=== PATIENT | male | born 1955 | race Caucasian/White ===

== ENCOUNTER 2017-11-26 00:26 | Emergency (ER) | payer MEDICAID ==
[~2017-11-26] VITALS: Ht 185.4 cm; Wt 85.6 kg
[2017-11-26 00:42] VITALS: BP 134/80
[2017-11-26] MEDS ORDERED: TETanus/Pertussis (Acell)/Diphther VAC/PF (Tdap-Adult) 0.5ml syringe IMVAC ONE (01:35)
[2017-11-26] MEDS ORDERED: famotidine 20mg tablet PO ONE (01:35)
[2017-11-26] MEDS ORDERED: methylPREDNISolone sod succ 125mg/2ml vial IV ONE (01:35)
[2017-11-26] MEDS ORDERED: METH4TAB81 PO (01:36)
[2017-11-26] MEDS ORDERED: FAMO-128 PO (01:36)
[2017-11-26] MEDS ORDERED: DIPH-423 PO (01:36)
[2017-11-26] MEDS ORDERED: EPIN0.3P8 IM (01:43)
== END 2017-11-26 02:02 | disposition home or self-care (01) ==
LOC: ER 00:27
DX: T63.441A Toxic effect of venom of bees, accidental (unintentional), initial encounter (principal); Z91.030 Bee allergy status; Z79.899 Other long term (current) drug therapy; Z98.890 Other specified postprocedural states; Y92.89 Other specified places as the place of occurrence of the external cause
CPT/HCPCS: 90471; 90715; 96374; 99284; J2930

== ENCOUNTER 2019-12-16 07:01 | Emergency (ER) | payer MEDICAID ==
[~2019-12-16] VITALS: Ht 185.4 cm; Wt 86.4 kg
[~2019-12-16 07:01] MED LIST: DIPH-423 PO; EPIN0.3P8 IM; FAMO-128 PO; METH4TAB81 PO
[2019-12-16 07:41] LABS: CLARITY,URINE CLEAR (Clear); COLOR,URINE YELLOW (Yellow); GLUCOSE, URINE NEGATIVE (Neg); KETONES,URINE NEGATIVE (Neg); LEUKOCYTE ESTERASE ,URINE NEGATIVE (Neg); NITRITES, URINE NEGATIVE (Neg); OCCULT BLOOD,URINE NEGATIVE (Neg); PH,URINE 5.5 (4.8-8.0); PROTEIN,URINE NEGATIVE (Neg); UA COLLECTION TYPE CLN CATCH MIDSTREAM
[2019-12-16 07:53] VITALS: BP 158/85
[2019-12-16] MEDS ORDERED: METH-360 PO (08:29)
[2019-12-16] MEDS ORDERED: ketorolac tromethamine 15mg/ml inj. IM ONE (08:30)
== END 2019-12-16 08:44 | disposition home or self-care (01) ==
LOC: ER 07:02
DX: S39.012A Strain of muscle, fascia and tendon of lower back, initial encounter (principal); R04.0 Epistaxis; E78.00 Pure hypercholesterolemia, unspecified; Z98.890 Other specified postprocedural states; Z91.030 Bee allergy status; Z79.899 Other long term (current) drug therapy; X58.XXXA Exposure to other specified factors, initial encounter; Y93.89 Activity, other specified; Y92.89 Other specified places as the place of occurrence of the external cause; Y99.8 Other external cause status
CPT/HCPCS: 81003; 96372; 99283; J1885

== ENCOUNTER 2020-09-09 13:36 | Emergency (ER) | payer MEDICAID ==
[~2020-09-09] VITALS: Ht 182.9 cm; Wt 84.1 kg
[~2020-09-09 13:36] MED LIST changes: +METH-360 PO
[2020-09-09 13:59] VITALS: BP 125/77
[2020-09-09] MEDS ORDERED: CEPH250T PO (14:12)
== END 2020-09-09 14:29 | disposition home or self-care (01) ==
LOC: ER 13:39
DX: L03.113 Cellulitis of right upper limb (principal); E78.00 Pure hypercholesterolemia, unspecified; Z98.890 Other specified postprocedural states; Z91.030 Bee allergy status; Z79.2 Long term (current) use of antibiotics; Z79.899 Other long term (current) drug therapy
CPT/HCPCS: 99283

== ENCOUNTER 2021-04-17 16:23 | Emergency (ER) | payer MEDICAID ==
[~2021-04-17] VITALS: Ht 185.4 cm; Wt 90.9 kg
[2021-04-17 16:35] VITALS: BP 151/88
== END 2021-04-17 18:01 | disposition home or self-care (01) ==
LOC: ER 16:24
DX: M66.0 Rupture of popliteal cyst (principal); E78.00 Pure hypercholesterolemia, unspecified; Z91.030 Bee allergy status; Z79.899 Other long term (current) drug therapy
CPT/HCPCS: 93971; 99284

== ENCOUNTER 2021-09-25 18:52 | Emergency (ER) | payer MEDICAID ==
[~2021-09-25] VITALS: Ht 185.4 cm; Wt 88.6 kg
[2021-09-25 19:35] VITALS: BP 141/90
[2021-09-25 20:06] LABS: CLARITY,URINE SLIGHTLY CLOUDY (Clear); COLOR,URINE YELLOW (Yellow); GLUCOSE, URINE NEGATIVE (Neg); KETONES,URINE TRACE mg/dl (Neg); LEUKOCYTE ESTERASE ,URINE TRACE (Neg); NITRITES, URINE NEGATIVE (Neg); OCCULT BLOOD,URINE TRACE-INTACT (Neg); PH,URINE 5.5 (4.8-8.0); PROTEIN,URINE NEGATIVE (Neg); UROBILINOGEN,URINE 0.2 E.U/dL (0.2-1.0)
[2021-09-25 20:19] LABS: UA COLLECTION TYPE CLN CATCH MIDSTREAM
[2021-09-25 20:21] LABS: WBC,URINE 30-50 /HPF (0-4)
[2021-09-25 20:22] LABS: BACTERIA,URINE FEW /HPF (Neg); MUCUS STRANDS FEW /LPF (Neg); RBC,URINE 0-2 /HPF (0-2); SQUAMOUS EPITHELIAL CELL,UR FEW /LPF (FEW); TRANSITIONAL EPI CELLS,URINE FEW /HPF
[2021-09-25 20:50] LABS: BASOPHILS # (AUTO) 0.1 X10'3 (0-0.2); BASOPHILS % (AUTO) 0.6 % (0-1); EOSINOPHILS # (AUTO) 0.3 X10'3 (0-0.9); EOSINOPHILS % (AUTO) 3.6 % (0-6); HEMOGLOBIN 15.2 g/dl (14.0-17.9); LYMPHOCYTES % (AUTO) 11.7 % (21-51); MEAN CORPUSCULAR HEMOGLOBIN 30.3 PG (27.0-31.0); MEAN CORPUSCULAR VOLUME 91.9 FL (78-98); MEAN PLATELET VOLUME 8.5 FL (7.4-10.4); MONOCYTES # (AUTO) 0.7 X10'3 (0-0.9); MONOCYTES % (AUTO) 8.2 % (2-12); NEUTROPHILS # (AUTO) 6.3 X10'3 (1.8-7.7); NEUTROPHILS % (AUTO) 75.9 % (42-75); PLATELET COUNT 238 X10'3 (140-440); RED BLOOD COUNT 5.01 X10'6 (4.70-6.10); RED CELL DISTRIBUTION WIDTH 13.5 % (11.5-14.5); WHITE BLOOD COUNT 8.3 X10'3 (4.5-11.0)
[2021-09-25 21:07] LABS: ALANINE AMINOTRANSFERASE 49 U/L (12-78); ALBUMIN 3.4 G/DL (3.4-5.0); ALBUMIN/GLOBULIN RATIO 0.9 (1.1-1.5); ALKALINE PHOSPHATASE 61 IU/L (46-116); ANION GAP 8 (8-16); ASPARTATE AMINO TRANSFERASE 36 U/L (10-37); BILIRUBIN,TOTAL 0.4 MG/DL (0.1-1.0); BLOOD UREA NITROGEN 19 MG/DL (7-18); BUN/CREATININE RATIO 19.8 (5.4-32.0); CHLORIDE 105 MMOL/L (99-107); CREATININE 0.96 MG/DL (0.60-1.10); GLUCOSE 112 MG/DL (70-104); LIPASE 78 U/L (73-393); POTASSIUM 3.9 MMOL/L (3.5-5.1); SODIUM 139 MMOL/L (135-145); TOTAL CARBON DIOXIDE 26.1 MMOL/L (24-32); TOTAL PROTEIN 7.1 G/DL (6.4-8.2); eGFR 79 ML/MIN
[2021-09-25 21:16] LABS: CALCIUM 8.5 MG/DL (8.5-10.1)
== END 2021-09-26 00:51 | disposition left against medical advice (07) ==
LOC: ER 18:53
DX: R10.9 Unspecified abdominal pain (principal); Z53.21 Procedure and treatment not carried out due to patient leaving prior to being seen by health care provider
CPT/HCPCS: 36415; 80053; 81001; 83690; 85025; 87088

== ENCOUNTER 2023-09-08 14:37 | Emergency (ER) | payer MEDICAID ==
[~2023-09-08] VITALS: Ht 185.4 cm; Wt 86.0 kg
[2023-09-08 14:38] VITALS: BP 150/117; PULSE 76; RESP 16; TEMP 97.8; O2SAT 99
[2023-09-08] MEDS ORDERED: HYDR-3965 PO (16:52)
== END 2023-09-08 17:12 | disposition home or self-care (01) ==
LOC: ER 14:37
DX: S62.304A Unspecified fracture of fourth metacarpal bone, right hand, initial encounter for closed fracture (principal); E78.00 Pure hypercholesterolemia, unspecified; Z91.030 Bee allergy status; Z79.899 Other long term (current) drug therapy; X58.XXXA Exposure to other specified factors, initial encounter; Y93.89 Activity, other specified; Y92.89 Other specified places as the place of occurrence of the external cause; Y99.8 Other external cause status
CPT/HCPCS: 29125; 73110; 73130; 99284; A6446; A6449

== ENCOUNTER → 2023-10-27 | Emergency (ER) | payer MEDICAID ==
[~2023-10-27] VITALS: Ht 185.4 cm; Wt 87.0 kg
[2023-10-27 14:27] VITALS: BP 160/83; PULSE 73; RESP 18; TEMP 97.9; O2SAT 98
== END | disposition left against medical advice (07) ==
LOC: ER 13:56
DX: S62.304A Unspecified fracture of fourth metacarpal bone, right hand, initial encounter for closed fracture (principal); E78.00 Pure hypercholesterolemia, unspecified; Z91.030 Bee allergy status; Z79.899 Other long term (current) drug therapy; X58.XXXA Exposure to other specified factors, initial encounter; Y93.89 Activity, other specified; Y92.89 Other specified places as the place of occurrence of the external cause; Y99.8 Other external cause status
CPT/HCPCS: 99281

== ENCOUNTER 2024-04-17 11:57 | Emergency (ER) | payer MEDICAID ==
[~2024-04-17] VITALS: Ht 185.4 cm; Wt 88.0 kg
[2024-04-17 12:24] VITALS: BP 175/94; PULSE 70; RESP 16; TEMP 98.6; O2SAT 98
== END 2024-04-17 16:42 | disposition left against medical advice (07) ==
LOC: ER 11:57
DX: R10.9 Unspecified abdominal pain (principal); N50.811 Right testicular pain; Z53.21 Procedure and treatment not carried out due to patient leaving prior to being seen by health care provider

== ENCOUNTER 2024-12-22 23:05 | Emergency (ER) | payer MEDICAID ==
[~2024-12-22] VITALS: Ht 185.4 cm; Wt 81.1 kg
[2024-12-22 23:07] VITALS: TEMP 97.7
--- NOTE | 2024-12-22 23:29 | Physician Documentation ---
History of Present Illness ~ Chief Complaint: Allergic Reaction Stated Complaint: BEE STING Time Seen by MD: 23:29 Primary Medical Doctor: NONE HPI Patient presents to the emergency room after being stung by bee. He states he is allergic. He states that after he got stung he tried to use his EpiPen autoinjector however it malfunctioned. He states he was digging in the backyard and some to [place] wasps came mountains same in the back. He states he knows he is allergic to honey bees that has unsure of wasps. Denies shortness of breath. No rash Medication Reconciliation Allergies: Coded Allergies: bee venom protein (honey bee) (Verified Allergy, Severe, 11/26/17) Scheduled Epinephrine (Epipen 2-Braxton), 0.3 MG IM UD Famotidine (Pepcid), 1 TAB PO Q12H Methocarbamol (Robaxin-750), 1 TAB PO Q8H Methylprednisolone (Medrol Dosepak), 4 MG PO DAILY Scheduled PRN Diphenhydramine Hcl (Benadryl), 50 MG PO Q6H PRN ITCHING PRN for itching Past Medical History Past Medical History: High Cholesterol, *MUSCULOSKELETAL* Past Surgical History: orthopedic surgeries Alcohol Use: None Drug Use: none Lives In: Home Occupation: employed Review of Systems ROS All review of systems negative except as per HPI Physical Exam Vital Signs: Temperature: 97.7, Heart Rate: 81, Respiratory Rate: 16, BP: 124/72, Pulse Oximetry: 97, Weight: 81.100 Oxygen Flow Rate: 0 Physical Exam General: Patient is awake, alert, oriented x4 in no acute distress, anxious Head: Normocephalic and atraumatic. Eyes: Conjunctival normal. EOMI. PERRL. ENT: Mucous membranes moist. Neck: Supple, trachea is midline. Chest: Clear to auscultation bilaterally without rales, rhonchi, or wheezes. There is no accessory muscle use or retractions. Cardiac: RRR without murmurs, gallops, or rubs. Back: Three 2 x 2 cm welts noted to left upper shoulder with no appreciable stingers Skin: No rash Progress Results/Orders Results/Orders Vital Signs 12/22/24 12/22/24 12/22/24 23:07 23:18 23:59 Temp 97.7 Pulse 81 77 Resp 16 12 B/P (MAP) 124/72 124/67 (86) Pulse Ox 97 98 O2 Flow Rate 0 0 Medical Decision Making Findings Patient presents to the emergency room after suffering from wasp stings. He was monitored in the emergency room with no appreciable systemic symptoms. I do not suspect anaphylaxis although this was considered. No appreciable stingers to be removed. Departure Disposition: HOME / SELF CARE / HOMELESS Impression: Primary Impression: Wasp sting Condition: Stable Discharge Instructions: Bee, Wasp, or Hornet Sting, Adult Referrals: NO PRIMARY CARE PROVIDER (PCP) Prescriptions Epinephrine (Epipen 2-Braxton) 0.3 Mg/0.3 Ml Auto.injct 1 SYR IM ONCE for 1 Day, #1 PKT 0 Refills Prov: KOKO GREENBERG MD 12/23/24 Education Educated: Patient Educated regarding: diagnosis, treatment, need for follow up Signature Scribe Signature: No scribe Attestation: The note accurately reflects work and decisions made by me.Koko Greenberg MD 12/23/24 00:07 KOKO GREENBERG MD Dec 22, 2024 23:29
[2024-12-23] MEDS ORDERED: EPIN0.3P3 IM (00:07)
[2024-12-23 00:14] VITALS: BP 123/76; PULSE 74; RESP 16; O2SAT 95
== END 2024-12-23 00:15 | disposition home or self-care (01) ==
LOC: ER 23:06
DX: T63.461A Toxic effect of venom of wasps, accidental (unintentional), initial encounter (principal); E78.00 Pure hypercholesterolemia, unspecified; Z88.8 Allergy status to other drugs, medicaments and biological substances; Z91.030 Bee allergy status; X58.XXXA Exposure to other specified factors, initial encounter; Y93.89 Activity, other specified; Y92.89 Other specified places as the place of occurrence of the external cause; Y99.8 Other external cause status
CPT/HCPCS: 99282